=== PATIENT | male | born 1940 | race Caucasian/White ===

== ENCOUNTER 2024-12-04 09:39 | Emergency (ER) | payer OTHER, SELFPAY ==
[2024-12-04 09:45] VITALS: BP 158/86
--- NOTE | 2024-12-04 10:16 | ED.GENMED ---
History of Present Illness
General
Chief Complaint: Abdominal Symptoms
Source: patient
Time Seen by Provider: 12/04/24 10:03
History of Present Illness
History of Present Illness:
84-year-old male with past medical history of hypertension, GERD, BPH presenting to the emergency department for 1 week of upper abdominal pain, mainly right-sided and radiating into the right upper part of his back, waxes and wanes in intensity, no
other associated symptoms and symptoms do not seem to be exacerbated with eating, position, time of day but does note it improves with the oxycodone that was provided to him by his primary care provider. Patient did see his primary care provider
about 4 days ago, had a urinalysis completed which was reportedly negative for blood or infection. Patient had initially thought his symptoms were related to a kidney stone as he states he had them many years ago and had surgery to have them
removed back in the 70s. Patient denies any urinary symptoms different than his baseline (notes he is on 2 separate medications due to BPH). He denies any fevers, chills, rigors, bowel changes, urinary symptoms, recent URI-like symptoms or any
other concerns. States presently pain is about a 3 out of 10, took oxycodone around 4 AM this morning. Patient had also attempted [id number] medications including Gas-X and other reflux-like medications with minimal relief.
Past History
Past History
ED Past Medical History: GERD, HTN and Other (BPH)
ED Past Surgical History: Urological
Social History
Tobacco: Non-smoker
Alcohol: None
Drug: None
Personal: Single
Living: with family
Review of Systems
Review of Systems
All Other Systems: ROS reviewed and negative except as documented in HPI and ROS
Phy Exam
Physical Exam
Physical Exam:
GENERAL: Alert , in no apparent distress
EYE: clear conjunctiva b/l
HEAD: NCAT
ENT: mmm.
CARDIAC: Regular rate and rhythm .
LUNGS: Clear breath sounds bilaterally, no acute respiratory distress, no wheezes/rales/rhonchi
ABDOMEN: Soft, mild tenderness within the epigastrium, negative Barron sign, no r/g, no cvat
NEUROLOGICAL: Alert and oriented
SKIN: Warm and dry, skin intact.
MUSCULOSKELETAL: No edema, well perfused.
PSYCH: Normal and appropriate interaction.
Scores
Heart Failure Risk
Heart Failure Risk Score: Not Applicable
Heart Score for Chest Pain Patients
STEMI patient?: Not applicable
Withdrawal Assessment of Alcohol
Withdrawal Assessment Completed?: Not applicable
Course
Orders/Labs/Results
Orders:
Orders
12/04/24 10:16
Electrocardiogram (*1) Urgent
Reason for Study: Abdominal Pain
CT Abd/pelvis W Iv Cont Urgent
Comment:
Reason For Exam: upper abd pain, goes to right upper back
EKG- Treatment ONCE
12/04/24 10:33
Complete Blood Count/With Diff Urgent
Comprehensive Metabolic Panel Urgent
Lipase Urgent
Troponin I Urgent
12/04/24 11:42
Urinalysis Reflex To Culture Urgent
Date Specimen was Collected: 12/04/24
Time Specimen was Collected: 11:26
Abnormal Lab Results
12/04/24 12/04/24
10:33 11:42
MCH 31.4 H pg
(27.0-31.0)
Sodium 134 L mmol/L
(135-145)
Glucose 250 H mg/dl
(70-99)
Total Protein 6.0 L g/dl
(6.3-8.2)
Urine Glucose 2+ A
(Negative)
12/04/24 10:33
12/04/24 10:33
Vital Signs
Initial and Last Documented VS:
Initial Vital Signs
Temp Pulse Resp BP Pulse Ox
97.7 F 98 16 158/86 99
12/04/24 09:45 12/04/24 09:45 12/04/24 09:45 12/04/24 09:45 12/04/24 09:45
Last Documented Vital Signs
Temp Pulse Resp BP Pulse Ox
97.7 F 68 20 134/88 98
12/04/24 09:45 12/04/24 13:10 12/04/24 13:10 12/04/24 13:10 12/04/24 13:10
MDM/Problems Addressed
Differential Diagnosis Includes:
Symptomatic cholelithiasis, cholecystitis, GERD, peptic ulcer disease, duodenitis, pancreatitis, renal/ureteral colic, shingles, less concern for pulmonary etiology, atypical ACS
MDM/Problems Addressed:
84-year-old male presenting to the ER for evaluation of right upper quadrant pain radiating to the right flank area that has been ongoing for about 1 week, unchanged today but recommended by primary care provider to come to the ER so patient could
have imaging. Pain currently controlled after patient did take an oxycodone earlier this morning. Symptoms do not seem to be exacerbated by any specific movement/position/eating or time of day. No other associated symptoms. Patient reportedly
had a negative urinalysis done last week. Will recheck labs, urine, EKG and check CT of the abdomen and pelvis to further evaluate. I did consider ultrasound however given the fact that patient's abdomen is relatively benign as well as does not
seem to be worse with food I have a little less suspicion for this as a diagnosis. Reassessment following.
*Radiology
Radiology exam reviewed: radiology read reviewed
*Pulse Oximetry
Patient hypoxic: no
*Critical Care Note
Total Time (30-74mins, 75-104mins- exclusive of procedures): Not Applicable
Data Reviewed
Review of Other/Old Records Reveals: Labs and Records
Patient Management
Discussion with other providers: PCP
Escalation/DeEscalation of care consider admission/obs:
Patient's labs are all mostly reassuring. He does have mild hyperglycemia. Patient notes some recent medication changes as far as his [id number] diabetes. CT scan without any evidence for acute intra-abdominal pathologies. I notified
patient's primary care about the workup given patient recently saw them in office and was recommended to come here by the primary care office. They will follow-up with him later this week. Patient aware of return precautions to the ER.
Recommended stool softener for the mild constipation. Stable for discharge home.
ED Attending Note
-
Portions of this chart may have been created with voice recognition software.� Occasional wrong word or��sound alike� substitutions may have occurred due to the inherent limitations of voice recognition software.
Discharge Plan
Departure
Patient Disposition: Home (Routine Discharge)
Date of Disposition: 12/04/24
Time of Disposition: 12:56
Patient with high blood pressure during this ER visit?: Yes
Discharge Problem:
Abdominal pain
Instructions: Abdominal Pain
Prescriptions:
No Action
atenolol-chlorthalidone [Tenoretic 50] 50 MG/25 MG tablet
1 tab PO DAILY
lansoprazole [Prevacid] 30 MG capsule,delayed release(DR/EC)
30 mg PO DAILY
atorvastatin 10 MG tablet
10 mg PO QPM
tamsulosin 0.4 MG capsule
0.4 mg PO DAILY
zolpidem 10 MG tablet
10 mg PO HSPRN PRN (Reason: sleep)
aspirin [Aspir-Low] 81 MG tablet,delayed release (DR/EC)
81 mg PO DAILY
oxycodone-acetaminophen [Endocet] 1 EACH tablet
1 ea PO Q4 PRN (Reason: pain)
naproxen sodium [Aleve] 220 MG tablet
220 mg PO TID
gabapentin 300 MG capsule
300 mg PO QID
methylcellulose 4000cps (bulk) 1,000 GM powder
1,000 gm MC BID
Referrals:
Graciela Hassan DO [Family Provider] -
Interventions
Interventions:
*Risk Screen - Suicide Last Done: 12/04/24 09:45
*General Assessment Last Done: 12/04/24 09:45
*Neglect/Abuse Screening Last Done: 12/04/24 09:45
*ED COVID-19 Vaccine History Last Done: 12/04/24 09:45
*Nursing Disposition Last Done: 12/04/24 13:10
CL-Lxnxli-Ecyxxkvuec Assessment Last Done: 12/04/24 11:06
Discharge Date and Time
Discharge Date/Time: 12/04/24 13:15
Print Language: LAO
[2024-12-04 10:19] VITALS: BMI 28.6
[2024-12-04 11:02] LABS: % Basophils 0.3 % (0-2); % Eosinophils 0.9 % (0-6); % Immature Granulocytes 0.4 % (0-0.5); % Lymphocytes 27.1 % (20.5-51.1); % Monocytes 6.1 % (1.7-9.3); % Neutrophils 65.2 % (42.2-75.2); Absolute Eosinophils 0.1 10^3/uL (0-0.7); Absolute Lymphocytes 1.9 10^3/uL (1.2-3.4); Absolute Monocytes 0.4 10^3/uL (0.1-0.6); Absolute Neutrophils 4.5 10^3/uL (1.4-6.5); Hematocrit 44.7 % (39.0-52.0); Hemoglobin 15.2 g/dL (13.0-18.0); Mean Corpuscular Hgb 31.4 pg (27.0-31.0); Mean Corpuscular Volume 92.4 fL (80.0-94.0); Mean Platelet Volume 8.9 fL (7.4-10.4); Nucleated Red Blood Cells % 0 % (-); Platelet Count 183 10^3/uL (130-400); Red Blood Cell Count 4.84 10^6/uL (4.70-6.10); Red Cell Dist. Width 12.2 % (11.5-14.5); White Blood Cell Count 6.9 10^3/uL (4.8-10.8)
[2024-12-04 11:17] LABS: ALT (SGPT) 21 U/L (0-50); AST (SGOT) 19 U/L (17-59); Albumin 3.7 g/dl (3.5-5.0); Alkaline Phosphatase 63 U/L (38-126); Blood Urea Nitrogen 14 mg/dl (9-20); Calcium 9.1 mg/dl (8.4-10.2); Carbon Dioxide 28 mmol/L (22-30); Chloride 99 mmol/L (98-107); Estimated Creatinine Clearance 68 ml/min; Glucose 250 mg/dl (70-99); Lipase 98 U/L (23-300); Potassium 3.9 mmol/L (3.5-5.1); Sodium 134 mmol/L (135-145); Total Bilirubin 0.8 mg/dl (0.2-1.3); eGFR > 60.00
[2024-12-04 11:34] LABS: Troponin I < 0.012 ng/ml
[2024-12-04 11:44] VITALS: BP 161/89
[2024-12-04 11:56] LABS: Urine Albumin Negative (Neg - Trace); Urine Bilirubin Negative (Negative); Urine Character Clear (Clear); Urine Color Yellow; Urine Glucose 2+ (Negative); Urine Ketone Negative (Negative); Urine Leukocyte Negative (Negative); Urine Nitrite Negative (Negative); Urine Occult Blood Negative (Negative); Urine Urobilinogen Negative (Neg - 1+)
[2024-12-04 12:00] VITALS: BP 134/88
[2024-12-04 13:10] VITALS: BP 134/88
== END 2024-12-04 13:15 | disposition home or self-care (01) ==
LOC: EMR 09:39
PROVIDERS: Physician Assistant Medical; EMERGENCY PHYSICIAN Emergency Medicine; FAMILY PHYSICIAN Family Medicine
DX: R10.11 Right upper quadrant pain (principal); I10 Essential (primary) hypertension; K21.9 Gastro-esophageal reflux disease without esophagitis; N40.0 Benign prostatic hyperplasia without lower urinary tract symptoms
CPT/HCPCS: 99285; 74177; 80053; 81003; 83690; 84484; 85025; 93005; Q9967

== ENCOUNTER → 2024-12-08 08:33 | Outpatient (REF) | payer OTHER, SELFPAY | LOC: RAD 08:33 | PROVIDERS: ATTENDING PHYSICIAN Family Medicine; FAMILY PHYSICIAN Family Medicine | DX: R10.11 Right upper quadrant pain (principal) | CPT/HCPCS: 76700 ==

== ENCOUNTER 2024-12-28 06:15 | Day surgery (SDC) | payer OTHER, SELFPAY ==
[2024-12-28 08:18] LABS: Glucose - Point of Care 137 mg/dl (70-99)
== END 2024-12-28 10:25 | disposition home or self-care (01) ==
LOC: GI 06:15
PROVIDERS: ATTENDING PHYSICIAN Internal Medicine; FAMILY PHYSICIAN Family Medicine
DX: R10.31 Right lower quadrant pain (principal); K64.8 Other hemorrhoids; D12.0 Benign neoplasm of cecum; D12.3 Benign neoplasm of transverse colon; D12.5 Benign neoplasm of sigmoid colon; K63.5 Polyp of colon
CPT/HCPCS: 45385; 45380; 88305; 82962

== ENCOUNTER → 2025-01-03 10:45 | Outpatient (REF) | payer OTHER, SELFPAY | LOC: RAD 10:45 | PROVIDERS: ATTENDING PHYSICIAN Family Medicine | DX: R10.31 Right lower quadrant pain (principal); Z87.39 Personal history of other diseases of the musculoskeletal system and connective tissue; R20.2 Paresthesia of skin | CPT/HCPCS: 72072 ==

== ENCOUNTER → 2025-01-22 12:55 | Outpatient (REF) | payer OTHER, SELFPAY | LOC: PAVMRI 12:55 | PROVIDERS: ATTENDING PHYSICIAN Family Medicine; REFERRING PHYSICIAN Internal Medicine | DX: R10.31 Right lower quadrant pain (principal); Z87.39 Personal history of other diseases of the musculoskeletal system and connective tissue; R20.2 Paresthesia of skin | CPT/HCPCS: 72146 ==

== ENCOUNTER → 2025-02-13 08:42 | Outpatient (REF) | payer OTHER, SELFPAY | LOC: MRI 3T 08:42 | PROVIDERS: ATTENDING PHYSICIAN Family Medicine; REFERRING PHYSICIAN Internal Medicine | DX: R10.11 Right upper quadrant pain (principal) | CPT/HCPCS: 72197; 74183; A9585 ==

== ENCOUNTER → 2025-09-16 11:30 | Outpatient (REF) | payer OTHER, SELFPAY | LOC: PAVMRI 11:30 | PROVIDERS: ATTENDING PHYSICIAN Family Medicine | DX: M54.2 Cervicalgia (principal) | CPT/HCPCS: 72141 ==